=== PATIENT | female | born 1975 | race Caucasian/White ===

== ENCOUNTER 2025-04-08 11:48 | Outpatient (CLI) | payer BC | END 2025-04-08 11:49 | disposition home or self-care (01) | LOC: CSHMAMMO 11:48 | PROVIDERS: ATTEND Physician Assistant | DX: Z12.31 Encounter for screening mammogram for malignant neoplasm of breast (principal) | CPT/HCPCS: 77063; 77067 ==

== ENCOUNTER 2025-05-30 09:33 | Outpatient (CLI) | payer BC | END 2025-05-30 09:34 | disposition home or self-care (01) | LOC: CSHCT 09:33 | PROVIDERS: ATTEND Otolaryngology Plastic Surgery within the Head & Neck | DX: R22.1 Localized swelling, mass and lump, neck (principal) | CPT/HCPCS: 70491 ==